=== PATIENT | female | born 1980 | race Caucasian/White ===

== ENCOUNTER → 2019-10-10 11:25 | Outpatient (CLI) | payer OTHER, SELFPAY ==
[2019-10-10 11:18] VITALS: BMI 34.7
--- NOTE | 2019-10-10 11:26 | RAD_ITS ---
STUDY: X-RAY - LEFT SHOULDER REASON FOR EXAM: Female, 39 years old. LEFT SHOULDER PAIN, NKI TECHNIQUE: 4 view(s) of the shoulder. COMPARISON: None. FINDINGS: Normal glenohumeral articulation. Normal acromioclavicular joint. Normal acromion. Normal humeral head and visualized proximal humerus. The soft tissue structures are unremarkable. Normal visualized pulmonary apex. RAD/Shoulder min 2 Views IMPRESSION: Normal x-ray examination of the shoulder. Electronically Signed: Garbiel Meraz MD at 20:44 EDT , Service support ,
== END ==
PROVIDERS: Referring Provider Physician Assistant; Visit Provider Physician Assistant
DX: M25.512 Pain in left shoulder (principal)
CPT/HCPCS: 73030

== ENCOUNTER 2019-10-27 08:00 | Outpatient (RCR) | payer OTHER, SELFPAY ==
[2019-10-10 11:18] VITALS: BMI 34.7
--- NOTE | 2019-10-23 08:05 | HP.PTEVAL_ITS ---
Patient's Visit Information MATT OKEEFE is a 39 year old F referred to Physical Therapy by PATTI Ramirez with a diagnosis of Left Shoulder Impingment and Adhesive Capsulitis.. Date of Evaluation: 10/23/19 Physical Therapist: Fozia Reynolds DPT - Visit Plan Frequency: 2x /Week Duration: 4 Weeks Plan: Focus on UE ROM and scapular s/s - Subjective Left shoulder pain has been bothering her for about 3 months- insidious onset. Right shoulder issues were in January 2017 which has gotten a lot better not bothering her at all. Right hand dominate. Pain is located along the AC joint- pain does radiate occasioanlly to the elbow position dependent. Agg: everything- sudden movements Eases: relaxing Worst: 12/13 instant pain then goes away. Best: 04/14. Describes the instant pain as stabbing- dull and achy when she is just resting. Sleep: disturbed. Has had x-rays but no MRI. Feels the shoulder is less painful with slight increase in ROM- did have an injection. [place] so its less painful. 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 Gait: no deviation- good arm swing and trunk rotation. Palpation: tender along upper trap to the tip of the acromion- along the medial boder of the scapula. ROM: Elbow/Wrist/hand: WNL, AROM: Shoulder: Flexion: 125 degrees Abd: 95 degrees ER: 30 degrees IR: Pocket PROM: similiar numbers to AROM with painful hard end feels and guarding. Strength: Isometric: 4+/5 at neutral. Elbow: 4+/5, wrist: 5/5 Photo Finisher: equal. Impingment: positive, Empty can: positive - Goals Goal 1:: Patient will be I with HEP and progression Goal Time Frame: 4-6 Weeks Goal 2:: Patient will demo full AROM of hte left shoulder Goal Time Frame: 4-6 Weeks Goal 3:: Patient will maintain proper posture t/o tx session to demo increased scap s/s Goal Time Frame: 4-6 Weeks Goal 4:: Patient will report sleeping through the night for 1 week Goal Time Frame: 4-6 Weeks - Rehabilitation Potential Physical Therapy Diagnosis: Patient presents with hypomobility- she has decreased ROM, strength and muscular endurance leading to poor posture, inability to perform painfree ADL's. Rehabilitation Potential: Good - Anticipated Interventions Patient/Client Instruction: Educate patient on: Benefits of Fitness Program Therapeutic Exercise to Include: Strength training, Endurance training, Agility training, Body mechanics, Postural training, Flexibilty training, Neuromotor development, Passive ROM, Active ROM, Dynamic Lumbar Stabilization, Scapular Strength/Stabilization For the Purpose of:: To increase ROM, To improve muscle performance and motor function TENS: Yes Cryotherapy (ice pack, ice massage): Yes Thermo therapy (hot pack): Yes Ultrasound (thermal/non thermal): Yes Thank you for the opportunity to evaluate your patient. For Medicare and Medicare HMO plans, please review the plan of care and approve it. It will need to be FAXED BACK to us at [phone] for Medicare purposes. For Medicare only, by signing this I certify the plan of care. Please let me know if there are questions or concerns regarding this plan of care. Physician Signature: Date:
--- NOTE | 2020-01-01 16:19 | HP.PT.NRP ---
MATT OKEEFE was seen in my office for initial evaluation on 10/23/19. The following Plan of Care was established for this patient: Initial Frequency: 2x /Week Initial Duration: 4 Weeks Patient/Client Instruction: Educate patient on: Benefits of Fitness Program Therapeutic Exercise to Include: Strength training, Endurance training, Agility training, Body mechanics, Postural training, Flexibilty training, Neuromotor development, Passive ROM, Active ROM, Dynamic Lumbar Stabilization, Scapular Strength/Stabilization For the Purpose of:: To increase ROM, To improve muscle performance and motor function TENS: Yes Cryotherapy (ice pack, ice massage): Yes Thermo therapy (hot pack): Yes Ultrasound (thermal/non thermal): Yes This patient was last seen in our office . Pertinent comments regarding their Physical therapy will appear below: Patient has not returned to PT in over 6 weeks- appropriate for d/c and return to MD for further evaluation as needed. At this point I will be discontinuing this patient from physical therapy. I would be happy to see this patient again in the future if found appropriate by the physician. Thank you! LENA BeattyT
== END 2019-10-27 19:00 | disposition home or self-care (01) ==
LOC: PT 08:00
PROVIDERS: Referring Provider Physician Assistant; Visit Provider Physician Assistant
DX: M25.812 Other specified joint disorders, left shoulder (principal); M75.02 Adhesive capsulitis of left shoulder
CPT/HCPCS: 97035; 97110; 97161